=== PATIENT | female | born 1955 | race Caucasian/White ===

== ENCOUNTER 2019-01-12 11:05 | Emergency (ER) | payer MEDICARE, MEDICAID ==
[2019-01-12] MEDS ORDERED: WELL100T2 PO (12:05)
[2019-01-12] MEDS ORDERED: PANT20TA2 PO (12:05)
[2019-01-12] MEDS ORDERED: SYNT75TA PO (12:05)
[2019-01-12] MEDS ORDERED: SIMV10TA2 PO (12:05)
[2019-01-12] MEDS ORDERED: LISI-542 PO (12:05)
== END 2019-01-12 12:56 | disposition home or self-care (01) ==
LOC: M ED 11:05 → EDBD 11:05 → M ED 12:56
DX: S46.811A Strain of other muscles, fascia and tendons at shoulder and upper arm level, right arm, initial encounter (principal); X50.3XXA Overexertion from repetitive movements, initial encounter; Y92.098 Other place in other non-institutional residence as the place of occurrence of the external cause; Y93.C9 Activity, other involving computer technology and electronic devices; E11.9 Type 2 diabetes mellitus without complications; I10 Essential (primary) hypertension; K21.9 Gastro-esophageal reflux disease without esophagitis; E03.9 Hypothyroidism, unspecified; J45.909 Unspecified asthma, uncomplicated; E78.5 Hyperlipidemia, unspecified; Z79.899 Other long term (current) drug therapy